=== PATIENT | male | born 1950 | race Caucasian/White ===

== ENCOUNTER → 2016-11-09 | Outpatient (CLI) | payer OTHER ==
[~2016-11-09] MED LIST: AMARYL4 MG PO; ASPIR 8181 M1 PO; AVANDIA8 MG PO; BACTRIM,SEPT1 TABLET PO; CARVEDILOL25 MG PO; CIPRO500 M1 PO; Coreg PO; FLOMAX0.4 MG PO; Flomax PO; GLUCOPHAGE1000 MG PO; HUMALOG100 UNIT/2 SC; HYDROCODON-ACE1 EAC7 PO; KEFLEX500 MG PO; LANTUS 3 M100 UNITS/ SC; LANTUS 3 M100 UNITS1 SC; LISINOPRIL10 MG PO; MIRALAX, GLYCOL1 PK1 PO; NOVOLOG PE100 UNITS/ SC; PRINIVIL10 MG PO; SIMVASTATIN40 M1 PO; SIMVASTATIN40 MG PO
== END | disposition home or self-care (01) ==
LOC: NUC 10-24 07:30
DX: R94.8 Abnormal results of function studies of other organs and systems (principal); R68.81 Early satiety
CPT/HCPCS: 78264; A9541